=== PATIENT | female | born 1950 | race Caucasian/White ===

== ENCOUNTER 2019-03-16 05:13 | Day surgery (SDC) | payer MEDICARE, OTHER, SELFPAY ==
[2019-03-16 05:42] VITALS: BP 130/104; PULSE 76; RESP 16; TEMP 36.5; O2SAT 97; BMI 23.1
[2019-03-16] MEDS: Lactated Ringers 1,000 ML 100 ML IV (05:53)
--- NOTE | 2019-03-16 06:21 | PCM.HP.STD ---
Problem List (1) Personal history of colonic polyps Status: Acute History of Present Illness Date of Admission: 03/16/19 The patient is a 68 year old F who has a personal history of colon polyps. Her most recent colonoscopy was March 12, 2016. Using a hot snare I resected a 10 mm tubular adenoma from the transverse colon. Multiple fragments were submitted. She presents now for follow-up colonoscopy due to the size and difficulty of her previous colonoscopy. She had a very tortuous bowel. She notes chronic constipation. She notes that she had a successful hemorrhoidectomy at that time as well. She denies bright red blood per rectum or melena. No abdominal pain. No weight loss. She denies family history of colon cancer. Past Medical History Allergies No Known Allergies Allergy (Verified 03/10/19 10:01) Home Medications: Ambulatory Orders Medication Instructions Recorded peg 3350-electrolytes 236 4,000 ml PO ONCE #4000 ml 02/24/19 gram-22.74 gram-6.74 gram-5.86 gram solution Simvastatin [Zocor] 40 mg PO QHS 03/10/19 Smoking Status: Never smoker Tobacco Use: Non-smoker Review of Systems Constitutional: Denies: Anorexia HEENT: Denies: Difficulty Swallowing Cardiovascular: Denies: Chest Pain Gastrointestinal: Denies: Abdominal Pain, Melena Endocrine: Denies: Change in Body Habitus VTE Information - Inpt Only VTE Present on Admission: No Patient Problems: Active and Suspected Problems Personal history of colonic polyps (Acute) - Physical Exam Vitals/I&O's: Vital Signs Temp Pulse Resp BP Pulse Ox 97.7 F L 76 16 130/104 H 97 03/16/19 05:42 03/16/19 05:42 03/16/19 05:42 03/16/19 05:42 03/16/19 05:42 Oxygen Delivery Method Room Air Weight: 132 lb 7.965 oz Body Mass Index (BMI) 23.1 General: Alert, Oriented x3, Cooperative, No apparent distress HEENT: Atraumatic Oral: Moist Mucosa Neck: Supple Lungs: Clear to auscultation Cardiovascular: Regular rate, Regular Rhythm Abdomen: Bowel Sounds Present, Soft, Non Tender Extremities: No Calf Tenderness Psych/Mental Status: Normal Affect Current Medications Lactated Ringer's () 1,000 mls @ 100 mls/hr IV .Q10H ONE Stop: 03/16/19 15:54 Last Admin: 03/16/19 05:53 Dose: 100 mls/hr Documented by: Assessment/Plan All Active Problems Personal history of colonic polyps (Acute) 68-year-old female presents for surveillance colonoscopy. I have discussed the technique, benefits, risks, alternatives. She has had an opportunity to ask and have questions answered. She presents via our open access program today. We will proceed as noted. Devendra Leiva M.D., F.A.C.S.
[2019-03-16 06:59] VITALS: BP 118/80; BP 130/104; PULSE 77; RESP 16; TEMP 36.7; O2SAT 99
--- NOTE | 2019-03-16 07:02 | OP.COLON_ITS ---
Patient Name: Kenzie Kenny Procedure Date: 03/16/2019 6:05 AM Date of : 1950 Age: 68 Procedure: Colonoscopy Indications: High risk colon cancer surveillance: Personal history of colonic polyps Providers: Devendra Leiva MD Referring MD: Amy Girard Medicines: See the Anesthesia note for documentation of the administered medications Patient Profile: Last Colonoscopy: February 2016. Complications: No immediate complications. Procedure: Pre-Anesthesia Assessment: - Prior to the procedure, a History and Physical was performed, and patient medications and allergies were reviewed. The patient's tolerance of previous anesthesia was also reviewed. The risks and benefits of the procedure and the sedation options and risks were discussed with the patient. All questions were answered, and informed consent was obtained. Prior Anticoagulants: The patient has taken no previous anticoagulant or antiplatelet agents. ASA Grade Assessment: II - A patient with mild systemic disease. After reviewing the risks and benefits, the patient was deemed in satisfactory condition to undergo the procedure. After I obtained informed consent, the scope was passed under direct vision. Throughout the procedure, the patient's blood pressure, pulse, and oxygen saturations were monitored continuously. The colonoscope was introduced through the anus and advanced to the cecum, identified by appendiceal orifice and ileocecal valve. The colonoscopy was performed with moderate difficulty due to a tortuous colon. The patient tolerated the procedure well. The quality of the bowel preparation was good. The ileocecal valve and the appendiceal orifice were photographed. Scope In: 6:36:52 AM Scope Withdrawal Time 0 hours 6 minutes 9 seconds Scope Out: 6:55:11 AM Total Procedure Duration Time 0 hours 18 minutes 19 seconds Findings: The perianal exam findings include non-thrombosed external hemorrhoids, non-thrombosed internal hemorrhoids and internal hemorrhoids (Grade I). Multiple diverticula were found in the sigmoid colon and descending colon. Extensive diverticulosis and tortuosity of the sigmoid requiring supine position and transabdominal pressure and then left lateral decubitus position inorder to navigate. The exam was otherwise without abnormality. Impression: - Non-thrombosed external hemorrhoids, non-thrombosed internal hemorrhoids and internal hemorrhoids (Grade I) found on perianal exam. - Diverticulosis in the sigmoid colon and in the descending colon. - The examination was otherwise normal. - No specimens collected. Recommendation: - Discharge patient to home. - Resume previous diet. - Continue present medications. - Repeat colonoscopy in 5 years for surveillance. Procedure Code(s): --- Professional --- G0105, Colorectal cancer screening; colonoscopy on individual at high risk Diagnosis Code(s): --- Professional --- Z86.010, Personal history of colonic polyps K64.0, First degree hemorrhoids K64.4, Residual hemorrhoidal skin tags K57.30, Diverticulosis of large intestine without perforation or abscess without bleeding CPT copyright 2017 [employer]. All rights reserved. The codes documented in this report are preliminary and upon inpatient coder review may be revised to meet current compliance requirements. Devendra Leiva MD 03/16/2019 7:02:13 AM This report has been signed electronically. Number of Addenda: 0 Note Initiated On: 03/16/2019 6:05 AM
[2019-03-16 07:04] VITALS: BP 114/77; BP 130/104; PULSE 71; RESP 16; O2SAT 97
[2019-03-16 07:09] VITALS: BP 124/82; BP 130/104; PULSE 69; RESP 16; O2SAT 98
[2019-03-16 07:14] VITALS: BP 125/81; BP 130/104; PULSE 58; RESP 16; TEMP 36.7; O2SAT 99
[2019-03-16 07:17] VITALS: BP 130/104
== END 2019-03-16 07:32 | disposition home or self-care (01) ==
LOC: EN 05:15 → AC 05:25
PROVIDERS: Family Provider Internal Medicine; PCP Internal Medicine; Referring Provider Internal Medicine; Visit Provider Surgery
PROC: 0DJD8ZZ Inspection of Lower Intestinal Tract, Via Natural or Artificial Opening Endoscopic (ICD-10-PCS; CPT 45378; principal; 2019-03-16 06:25)
DX: Z86.010 Personal history of colon polyps (principal); K64.0 First degree hemorrhoids; K64.4 Residual hemorrhoidal skin tags; K57.30 Diverticulosis of large intestine without perforation or abscess without bleeding; K59.09 Other constipation; E78.00 Pure hypercholesterolemia, unspecified; Z78.0 Asymptomatic menopausal state; Z79.899 Other long term (current) drug therapy
CPT/HCPCS: G0105; J7120; J2405

== ENCOUNTER → 2020-12-26 08:14 | Outpatient (CLI) | payer MEDICARE, OTHER, SELFPAY ==
[2020-12-26 10:05] LABS: Absolute Lymphocyte Count 0.84 X10^3/uL (0.83-4.51); Absolute Neutrophil Count 2.8 X10^3/uL (2.0-7.7); Basophil# 0.04 X10^3/uL; Basophil% 0.9 % (0-1); Eosinophil# 0.17 X10^3/uL; Eosinophils% 3.9 % (0-5); Hematocrit 41.1 % (37-47); Hemoglobin 13.7 g/dL (12.0-15.0); Lymphocyte # 0.84 X10^3/ul (0.83-4.51); Lymphocyte % 19.5 % (19-41); Mean Corp Hgb Conc 33.3 g/dL (32-36); Mean Corpuscular Hgb 31.2 pg (27.0-32.0); Mean Corpuscular Volume 93.6 fL (81-99); Mean Platelet Vol. 10.6 fl (6.2-12.0); Monocyte% 9.3 % (0-10); NRBC Flagged by Analyzer 0 % (0-5); Neutrophil # 2.84 X10^3/uL (2.7-7.7); Neutrophil % 65.9 % (47-70); Platelet Count 162 K/mm3 (150-450); RBC Distribution Width CV 13.1 % (11.6-14.6); RBC Distribution Width SD 44.8 fl (35.1-43.9); Red Blood Count 4.39 M/mm3 (4.2-5.4); White Blood Count 4.3 K/mm3 (4.4-11.0)
[2020-12-26 10:30] LABS: Vitamin D,25 Hydroxy 64.6 ng/mL
[2020-12-26 10:41] LABS: AST(SGOT) 22 U/L (15-37); Alanine Aminotransfer ALT/SGPT 32 U/L (13-56); Albumin, Serum 3.6 g/dL (3.2-5.0); Alkaline Phosphatase 63 U/L (45-117); Anion Gap 4 (5-15); BUN 16 mg/dL (7-18); BUN/Creat Ratio 21.8 RATIO (10-20); Calcium,Total 8.7 mg/dL (8.5-10.1); Chloride 105 mmol/L (98-107); Cholesterol 214 mg/dL (200); Creatinine, Serum 0.73 mg/dL (0.55-1.02); EST Glomerular Filtration Rate 83 mL/min (>60); Est Glom Filt Rate - Afr Amer 101 mL/min (>60); Globulin 3.5 g/dL (2.2-4.2); Glucose 94 mg/dL (74-106); High Density Lipoprotein 68 mg/dL; Potassium 3.9 mmol/L (3.5-5.1); Protein, Total 7.1 g/dL (6.4-8.2); Sodium Level 138 mmol/L (136-145); Thyroid Stim Hormone (TSH) 1.15 uIU/mL (0.358-3.74); Triglycerides 123 mg/dL; Very Low Density Lipoprotein 25 mg/dL (5-40)
[2020-12-30 12:08] LABS: Alternaria alternata <0.10 kU/L (Class 0); Aspergillus fumigatus <0.10 kU/L (Class 0); Bermuda Grass 0.38 kU/L (Class I); Bluegrass, Kentucky 4.11 kU/L (Class IV); Cat Hair/Dander, Standard <0.10 kU/L (Class 0); Cedar, Mountain <0.10 kU/L (Class 0); Cladosporium herbarum <0.10 kU/L (Class 0); Cockroach, American <0.10 kU/L (Class 0); D farinae Mite <0.10 kU/L (Class 0); D pteronyssinus <0.10 kU/L (Class 0); Dog Epithelia <0.10 kU/L (Class 0); Elm, American White <0.10 kU/L (Class 0); Hazelnut Tree <0.10 kU/L (Class 0); Hickory, White <0.10 kU/L (Class 0); Johnson Grass 0.54 kU/L (Class I); Maple/Box Elder <0.10 kU/L (Class 0); Mucor racemosus <0.10 kU/L (Class 0); Mugwort <0.10 kU/L (Class 0); Mulberry, White <0.10 kU/L (Class 0); Oak, White <0.10 kU/L (Class 0); Penicillium chrysogen <0.10 kU/L (Class 0); Pigweed, Rough <0.10 kU/L (Class 0); Plantain, English <0.10 kU/L (Class 0); Ragweed, Short/Common 3.55 kU/L (Class III); Sheep Sorrel(Dock) <0.10 kU/L (Class 0); Stemphylium herbarum <0.10 kU/L (Class 0); Sweet Gum <0.10 kU/L (Class 0); Sycamore, American <0.10 kU/L (Class 0)
[2020-12-31 08:24] LABS: Nettle <0.10 kU/L (Class 0)
== END ==
PROVIDERS: PCP Family Medicine; Referring Provider Family Medicine; Visit Provider Family Medicine
DX: R61 Generalized hyperhidrosis (principal); E55.9 Vitamin D deficiency, unspecified; E78.5 Hyperlipidemia, unspecified; Z91.09 Other allergy status, other than to drugs and biological substances
CPT/HCPCS: 36415; 80053; 80061; 82306; 84443; 85025; 86003

== ENCOUNTER 2021-08-02 08:18 | Outpatient (CLI) | payer MEDICARE, OTHER, SELFPAY ==
[2021-08-02 10:16] LABS: ALB/GLOB Ratio 1.2 RATIO (0.9-2.4); AST(SGOT) 17 U/L (15-37); Alanine Aminotransfer ALT/SGPT 25 U/L (13-56); Albumin, Serum 3.8 g/dL (3.2-5.0); Alkaline Phosphatase 74 U/L (45-117); Anion Gap 5 (5-15); BUN 10 mg/dL (7-18); BUN/Creat Ratio 12.6 RATIO (10-20); Calcium,Total 8.9 mg/dL (8.5-10.1); Chloride 104 mmol/L (98-107); Cholesterol 179 mg/dL (200); Creatinine, Serum 0.79 mg/dL (0.55-1.02); EST Glomerular Filtration Rate 76 mL/min (>60); Est Glom Filt Rate - Afr Amer 92 mL/min (>60); Globulin 3.3 g/dL (2.2-4.2); Glucose 87 mg/dL (74-106); High Density Lipoprotein 64 mg/dL; Potassium 3.9 mmol/L (3.5-5.1); Protein, Total 7.1 g/dL (6.4-8.2); Sodium Level 137 mmol/L (136-145); Triglycerides 106 mg/dL; Very Low Density Lipoprotein 21 mg/dL (5-40)
[2021-08-02 10:28] LABS: Vitamin D,25 Hydroxy 52.5 ng/mL
== END 2021-08-02 23:59 | disposition home or self-care (01) ==
LOC: MFPLAB 08:20
PROVIDERS: PCP Family Medicine; Referring Provider Family Medicine; Visit Provider Family Medicine
DX: R61 Generalized hyperhidrosis (principal); E78.5 Hyperlipidemia, unspecified; E55.9 Vitamin D deficiency, unspecified
CPT/HCPCS: 36415; 80053; 80061; 82306

== ENCOUNTER → 2022-01-31 | Outpatient (CLI) | payer MEDICARE, OTHER, SELFPAY ==
[2022-01-31 10:23] LABS: Absolute Neutrophil Count 3.3 X10^3/uL (2.0-7.7); Basophil# 0.05 X10^3/uL; Basophil% 1.1 % (0-1); Eosinophil# 0.09 X10^3/uL; Hematocrit 39.2 % (37-47); Hemoglobin 12.6 g/dL (12.0-15.0); Lymphocyte % 17.5 % (19-41); Mean Corp Hgb Conc 32.1 g/dL (32-36); Mean Corpuscular Hgb 29.7 pg (27.0-32.0); Mean Corpuscular Volume 92.5 fL (81-99); Mean Platelet Vol. 11.1 fl (6.2-12.0); Monocyte# 0.38 X10^3/uL; Monocyte% 8.3 % (0-10); NRBC Flagged by Analyzer 0 % (0-5); Neutrophil # 3.25 X10^3/uL (2.7-7.7); Neutrophil % 70.9 % (47-70); Platelet Count 214 K/mm3 (150-450); RBC Distribution Width CV 13.2 % (11.6-14.6); RBC Distribution Width SD 44.2 fl (35.1-43.9); Red Blood Count 4.24 M/mm3 (4.2-5.4); White Blood Count 4.6 K/mm3 (4.4-11.0)
[2022-01-31 10:57] LABS: Cholesterol 156 mg/dL (200); High Density Lipoprotein 61 mg/dL; Triglycerides 89 mg/dL; Very Low Density Lipoprotein 18 mg/dL (5-40)
[2022-01-31 10:58] LABS: Vitamin D,25 Hydroxy 60.9 ng/mL
== END | disposition home or self-care (01) ==
LOC: MFPLAB 08:31
PROVIDERS: PCP Family Medicine; Referring Provider Family Medicine; Visit Provider Family Medicine
DX: E55.9 Vitamin D deficiency, unspecified (principal); E78.5 Hyperlipidemia, unspecified; R61 Generalized hyperhidrosis
CPT/HCPCS: 36415; 80061; 82306; 85025

== ENCOUNTER → 2022-08-13 | Outpatient (CLI) | payer MEDICARE, OTHER, SELFPAY ==
--- NOTE | 2022-08-13 13:31 | STRESSREP_ITS ---
Stress Test Report Date: 08/13/2022 Procedure: Exercise tolerance test Indications: Chest pain/fatigue Consent: Per the patient Procedure: The patient exercised on a Mack protocol for 9 minutes and 31 seconds achieving a peak heart rate of 179 bpm (120% predicted maximal heart rate) with a peak blood pressure 200/100 mmHg and a peak MET capacity of approximately 11.7 MET's. The baseline ECG demonstrated normal sinus rhythm. The peak exercise ECG demonstrated no ischemic changes. There were no cardiac dysrhythmias pretest, during exercise, or recovery. The functional capacity was considered very good for age. The patient had no complaints of chest discomfort during exercise or recovery. Some shortness of breath with exercise. The examination was discontinued secondary to target heart rate being achieved. Impression: 1. Technically adequate (percent predicted maximal heart rate greater than 85%) exercise tolerance test 2. Peak exercise ECG with no ischemic changes 3. There were no cardiac dysrhythmias during exercise or recovery This note was generated with [employer] software. It may contain incorrect words, spelling, and punctuation that were not noted in checking the note before signing.
== END | disposition home or self-care (01) ==
LOC: PSN 08:47
PROVIDERS: PCP Family Medicine; Referring Provider Nurse Practitioner Family; Visit Provider Nurse Practitioner Family
DX: R07.9 Chest pain, unspecified (principal)
CPT/HCPCS: 93005; 93017

== ENCOUNTER → 2022-11-06 | Outpatient (CLI) | payer MEDICARE, OTHER, SELFPAY ==
[2022-11-06 10:43] LABS: Absolute Lymphocyte Count 1.32 X10^3/uL (0.83-4.51); Absolute Neutrophil Count 3.9 X10^3/uL (2.0-7.7); Basophil# 0.04 X10^3/uL; Basophil% 0.7 % (0-1); Eosinophil# 0.11 X10^3/uL; Eosinophils% 1.9 % (0-5); Hematocrit 42.5 % (37-47); Hemoglobin 13.7 g/dL (12.0-15.0); Lymphocyte # 1.32 X10^3/ul (0.83-4.51); Lymphocyte % 22.6 % (19-41); Mean Corp Hgb Conc 32.2 g/dL (32-36); Mean Corpuscular Hgb 29.6 pg (27.0-32.0); Mean Corpuscular Volume 91.8 fL (81-99); Mean Platelet Vol. 11.7 fl (6.2-12.0); Monocyte# 0.52 X10^3/uL; Monocyte% 8.9 % (0-10); NRBC Flagged by Analyzer 0 % (0-5); Neutrophil # 3.85 X10^3/uL (2.7-7.7); Neutrophil % 65.7 % (47-70); Platelet Count 151 K/mm3 (150-450); RBC Distribution Width CV 14.4 % (11.6-14.6); RBC Distribution Width SD 48.1 fl (35.1-43.9); Red Blood Count 4.63 M/mm3 (4.2-5.4); White Blood Count 5.9 K/mm3 (4.4-11.0)
[2022-11-06 11:29] LABS: Vitamin B12 284 pg/mL (211-911); Vitamin D,25 Hydroxy 45.5 ng/mL
[2022-11-06 11:58] LABS: ALB/GLOB Ratio 1.1 RATIO (0.9-2.4); AST(SGOT) 17 U/L (15-37); Alanine Aminotransfer ALT/SGPT 17 U/L (13-56); Albumin, Serum 3.9 g/dL (3.2-5.0); Alkaline Phosphatase 101 U/L (45-117); Anion Gap 4 (5-15); BUN 10 mg/dL (7-18); Calcium,Total 9.2 mg/dL (8.5-10.1); Chloride 106 mmol/L (98-107); Cholesterol 168 mg/dL (200); Creatinine, Serum 0.91 mg/dL (0.55-1.02); EST Glomerular Filtration Rate 64 mL/min (>60); Est Glom Filt Rate - Afr Amer 78 mL/min (>60); Globulin 3.6 g/dL (2.2-4.2); Glucose 89 mg/dL (74-106); High Density Lipoprotein 64 mg/dL; Potassium 4.1 mmol/L (3.5-5.1); Protein, Total 7.5 g/dL (6.4-8.2); Sodium Level 137 mmol/L (136-145); T4 Free Direct 0.97 ng/dL (0.76-1.46); Thyroid Stim Hormone (TSH) 1.72 uIU/mL (0.358-3.74); Triglycerides 145 mg/dL; Very Low Density Lipoprotein 29 mg/dL (5-40)
== END | disposition home or self-care (01) ==
LOC: MFPLAB 08:21
PROVIDERS: PCP Family Medicine; Visit Provider Family Medicine
DX: R53.83 Other fatigue (principal); E78.5 Hyperlipidemia, unspecified; E55.9 Vitamin D deficiency, unspecified
CPT/HCPCS: 36415; 80053; 80061; 82306; 82607; 84439; 84443; 85025

== ENCOUNTER → 2022-11-11 | Outpatient (CLI) | payer MEDICARE, OTHER, SELFPAY ==
--- NOTE | 2022-11-11 08:38 | ECHOD_ITS ---
Reason For Study: SOB Procedure This was a 2D Doppler, Color Flow transthoracic echocardiogram. Exam performed in department. Left Ventricle Normal LV size. Left ventricular systolic function is normal. The estimated ejection fraction is 60 %. Stage 1 diastolic dysfunction. No regional wall motion abnormalities noted. Right Ventricle Normal RV size. Normal systolic function. Atria Normal left atrium. Normal right atrium. Bubble contrast study negative for right to left interatrial shunt. Mitral Valve Bileaflet diffuse mitral valve thickening. Tricuspid Valve Normal tricuspid valve. Mild tricuspid valve insufficiency. Pulmonary artery systolic pressure is 28 mmHg. Great Vessels Mild to moderately dilated aortic root. The pulmonary artery is normal size. Normal inferior vena cava. Pericardium/Pleural No pericardial effusion. Medication 20 gauge I.V. with prn adaptor inserted into right arm. Performed a rapid injection of agitated mix of 9 cc saline and 1cc air to assess for atrial septal defect. MMode/2D Measurements & Calculations LVIDd: 3.9 cm IVSd: 0.92 cm Ao root diam: 4.1 cm LVIDs: 2.4 cm LVPWd: 0.74 cm LA dimension: 3.6 cm FS: 38.4 % LAV(MOD-bp): 50.7 ml LVAd ap4: 20.3 cm2 SV(MOD-sp4): 27.3 ml LAV(MOD-bp) Indexed: 31.1 ml/m2 LVLd ap4: 6.8 cm LAV(MOD-sp2): 48.9 ml EDV(MOD-sp4): 50.8 ml LAV(MOD-sp4): 44.2 ml EDV(sp4-el): 51.6 ml LVAs ap4: 12.2 cm2 LVLs ap4: 5.2 cm ESV(MOD-sp4): 23.4 ml ESV(sp4-el): 24.4 ml EF(MOD-sp4): 53.9 % EF(sp4-el): 52.6 % SV(sp4-el): 27.1 ml LA A4 area: 17.0 cm2 RA A4 area: 13.2 cm2 Time Measurements MV dec time: 0.23 sec Doppler Measurements & Calculations MV E max elliot: 78.4 cm/sec Lat Peak E' Elliot: 5.6 cm/sec Med Peak E' Elliot: 4.7 cm/sec MV A max elliot: 103.3 cm/sec E/E' lat: 14.1 E/E' med: 16.6 MV E/A: 0.76 MV V2 max: 103.6 cm/sec MV P1/2t max elliot: 77.5 cm/sec MR max elliot: 681.0 cm/sec MV max P.3 mmHg MV P1/2t: 81.9 msec MR max P.5 mmHg MV V2 mean: 57.8 cm/sec MV dec slope: 277.3 cm/sec2 MR mean elliot: 552.4 cm/sec MV mean P.6 mmHg MR mean P.5 mmHg MV V2 VTI: 28.3 cm MVA(P1/2t): 2.7 cm2 MR VTI: 250.7 cm PA V2 max: 116.5 cm/sec TR max elliot: 248.1 cm/sec TR max P.6 mmHg ECHO/Echo Complete Interpretation Summary Normal LV size. Left ventricular systolic function is normal. The estimated ejection fraction is 60 %. Bubble contrast study negative for right to left interatrial shunt. Mild to moderately dilated aortic root. Stage 1 diastolic dysfunction. Mild tricuspid valve insufficiency. Pulmonary artery systolic pressure is 28 mmHg. Ordering Physician: Jaydon Gandhi Referring Physician: Jaydon Gandhi Performed By: Tony Tineo and Student
== END | disposition home or self-care (01) ==
LOC: CVS 08:37
PROVIDERS: PCP Family Medicine; Referring Provider Family Medicine; Visit Provider Family Medicine
DX: R06.02 Shortness of breath (principal)
CPT/HCPCS: 93306; A4216

== ENCOUNTER → 2023-10-21 | Outpatient (CLI) | payer MEDICARE, OTHER, SELFPAY ==
[2023-10-21 12:49] LABS: Absolute Lymphocyte Count 0.94 X10^3/uL (0.83-4.51); Absolute Neutrophil Count 3.6 X10^3/uL (2.0-7.7); Basophil# 0.04 X10^3/uL; Basophil% 0.8 % (0-1); Eosinophil# 0.07 X10^3/uL; Eosinophils% 1.4 % (0-5); Hematocrit 40.4 % (37-47); Lymphocyte # 0.94 X10^3/ul (0.83-4.51); Lymphocyte % 18.5 % (19-41); Mean Corp Hgb Conc 32.2 g/dL (32-36); Mean Corpuscular Hgb 29.7 pg (27.0-32.0); Mean Corpuscular Volume 92.4 fL (81-99); Mean Platelet Vol. 11.6 fl (6.2-12.0); Monocyte# 0.45 X10^3/uL; Monocyte% 8.9 % (0-10); NRBC Flagged by Analyzer 0 % (0-5); Neutrophil # 3.56 X10^3/uL (2.7-7.7); Neutrophil % 70.2 % (47-70); Platelet Count 131 K/mm3 (150-450); RBC Distribution Width CV 13.8 % (11.6-14.6); RBC Distribution Width SD 46.7 fl (35.1-43.9); Red Blood Count 4.37 M/mm3 (4.2-5.4); White Blood Count 5.1 K/mm3 (4.4-11.0)
[2023-10-21 12:51] LABS: ALB/GLOB Ratio 1.1 RATIO (0.9-2.4); AST(SGOT) 26 U/L (15-37); Alanine Aminotransfer ALT/SGPT 21 U/L (13-56); Albumin, Serum 3.8 g/dL (3.2-5.0); Alkaline Phosphatase 79 U/L (45-117); Anion Gap 9 (5-15); BUN 11 mg/dL (7-18); BUN/Creat Ratio 13.7 RATIO (10-20); Calcium,Total 9.4 mg/dL (8.5-10.1); Chloride 102 mmol/L (98-107); Cholesterol 169 mg/dL (200); EST Glomerular Filtration Rate 75 mL/min (>60); Est Glom Filt Rate - Afr Amer 90 mL/min (>60); Globulin 3.6 g/dL (2.2-4.2); Glucose 85 mg/dL (74-106); High Density Lipoprotein 68 mg/dL; Protein, Total 7.4 g/dL (6.4-8.2); Sodium Level 135 mmol/L (136-145); T4 Free Direct 0.98 ng/dL (0.76-1.46); Thyroid Stim Hormone (TSH) 1.51 uIU/mL (0.358-3.74); Triglycerides 119 mg/dL; Very Low Density Lipoprotein 24 mg/dL (5-40)
[2023-10-21 12:56] LABS: Vitamin B12 355 pg/mL (211-911); Vitamin D,25 Hydroxy 52.1 ng/mL
== END | disposition home or self-care (01) ==
LOC: MFPLAB 08:04
PROVIDERS: PCP Family Medicine; Visit Provider Family Medicine
DX: E55.9 Vitamin D deficiency, unspecified (principal); R53.83 Other fatigue; E78.5 Hyperlipidemia, unspecified
CPT/HCPCS: 36415; 80053; 80061; 82306; 82607; 84439; 84443; 85025

== ENCOUNTER 2023-11-14 12:32 | Outpatient (CLI) | payer MEDICARE, OTHER, SELFPAY ==
--- NOTE | 2023-11-14 12:35 | ECHOD_ITS ---
Reason For Study: SOB Procedure This was a 2D Doppler, Color Flow transthoracic echocardiogram. Exam performed in department. Left Ventricle Normal LV size. Left ventricular systolic function is normal. The left ventricular ejection fraction is 65 %. Stage 1 diastolic dysfunction. No regional wall motion abnormalities noted. Right Ventricle Normal RV size. Normal systolic function. Atria Normal left atrium. Normal right atrium. Mitral Valve Normal mitral valve. Mild (1+) eccentric mitral valve insufficiency. Tricuspid Valve Normal tricuspid valve. Mild (1+) tricuspid valve insufficiency. Pulmonary artery systolic pressure is 32 mmHg. Aortic Valve Trisinus/trileaflet aortic valve. Pulmonic Valve Normal pulmonic valve. Great Vessels Mild to moderately dilated aortic root. The pulmonary artery is normal size. Inferior vena cava collapse with respiration. Pericardium/Pleural No pericardial effusion. MMode/2D Measurements & Calculations RVDd: 3.3 cm LVOT diam: 1.9 cm Ao root diam: 4.3 cm LVOT area: 2.8 cm2 LAV(MOD-sp4): 34.0 ml SV(MOD-sp4): 35.4 ml LVAd ap4: 20.9 cm2 LVLd ap4: 6.7 cm EDV(MOD-sp4): 55.3 ml EDV(sp4-el): 55.3 ml LVAs ap4: 11.0 cm2 LVLs ap4: 5.1 cm ESV(MOD-sp4): 19.9 ml ESV(sp4-el): 20.1 ml EF(MOD-sp4): 64.0 % EF(sp4-el): 63.7 % SV(sp4-el): 35.2 ml LA A4 area: 13.6 cm2 RA A4 area: 14.4 cm2 TAPSE: 2.1 cm Time Measurements MV dec time: 0.27 sec Doppler Measurements & Calculations MV E max elliot: 76.3 cm/sec Lat Peak E' Elliot: 5.4 cm/sec Med Peak E' Elliot: 4.2 cm/sec MV A max elliot: 94.5 cm/sec E/E' lat: 14.1 E/E' med: 18.2 MV E/A: 0.81 MV V2 max: 97.8 cm/sec Ao V2 max: 140.5 cm/sec MV max P.8 mmHg MV dec slope: 283.5 cm/sec2 Ao max P.9 mmHg MV V2 mean: 52.6 cm/sec Ao V2 mean: 82.1 cm/sec MV mean P.4 mmHg Ao mean P.3 mmHg MV V2 VTI: 27.0 cm Ao V2 VTI: 29.1 cm AV (velocity ratio): 0.89 MVA(VTI): 2.7 cm2 SYEDA(I,D): 2.5 cm2 SYEDA(V,D): 2.4 cm2 LV V1 max: 118.3 cm/sec SV(LVOT): 73.3 ml PA V2 max: 98.4 cm/sec LV V1 max P.6 mmHg PA max PG (full): 0.71 mmHg LV V1 mean P.6 mmHg LV V1 mean: 72.3 cm/sec LV V1 VTI: 25.9 cm TR max elliot: 268.9 cm/sec TR max P.9 mmHg ECHO/Echo Complete Interpretation Summary Normal LV size. Left ventricular systolic function is normal. The left ventricular ejection fraction is 65 %. Mild to moderately dilated aortic root. Stage 1 diastolic dysfunction. Ordering Physician: Jaydon Gandhi Referring Physician: Jaydon Gandhi Performed By: Riya Shah and Student
--- NOTE | 2023-11-14 13:11 | ART_ITS ---
Reason For Study: Unequal BP Procedure A bilateral upper extremity continuous wave Doppler with analog waveform analysis and segmental pressures. Left Segmental Pressures Left brachial= 139mmHg. Left ulnar= 139mmHg. Left radial= 173mmHg. The left radial waveforms are triphasic. The left ulnar waveforms are triphasic. Right Segmental Pressures Right brachial= 137mmHg. Right ulnar= 151mmHg. Right radial= 164mmHg. The right radial waveforms are triphasic. The right ulnar waveforms are triphasic. Indices The right wrist-beachial index by the radial artery is 1.18. The right wrist-brachial index by the ulnar artery is 1.09. The left wrist-beachial index by the radial artery is 1.24. The left wrist- brachial index by the ulnar artery is 1.00. VL/Upper Extremity Arterial Study Interpretation Summary Right wrist-brachial index 1.18, normal. Doppler/PVR waveforms of the right arm normal at rest. Left wrist-brachial index 1.24, normal. Doppler/PVR waveforms of the left arm n ormal at rest. Ordering Physician: Jaydon Gandhi Referring Physician: Jaydon Gandhi Performed By: Anika Martinez RVT
== END 2023-11-14 23:59 | disposition home or self-care (01) ==
LOC: CVS 12:34
PROVIDERS: PCP Family Medicine; Referring Provider Family Medicine; Visit Provider Family Medicine
DX: I99.8 Other disorder of circulatory system (principal); I77.89 Other specified disorders of arteries and arterioles; R06.02 Shortness of breath
CPT/HCPCS: 93306; 93923

== ENCOUNTER → 2023-12-02 | Outpatient (CLI) | payer MEDICARE, OTHER, SELFPAY | END | disposition home or self-care (01) | LOC: PSN 06:48 | PROVIDERS: PCP Family Medicine; Referring Provider Family Medicine; Visit Provider Family Medicine | DX: R06.02 Shortness of breath (principal) | CPT/HCPCS: 94060; 94726; 94729 ==

== ENCOUNTER 2024-06-24 10:20 | Outpatient (CLI) | payer MEDICARE, OTHER, SELFPAY ==
[2024-06-24 12:34] LABS: Absolute Lymphocyte Count 0.95 X10^3/uL (0.83-4.51); Absolute Neutrophil Count 3.5 X10^3/uL (2.0-7.7); Basophil# 0.04 X10^3/uL; Basophil% 0.8 % (0-1); Eosinophil# 0.11 X10^3/uL; Eosinophils% 2.2 % (0-5); Hemoglobin 13.5 g/dL (12.0-15.0); Lymphocyte # 0.95 X10^3/ul (0.83-4.51); Mean Corp Hgb Conc 32.9 g/dL (32-36); Mean Corpuscular Hgb 29.9 pg (27.0-32.0); Mean Corpuscular Volume 90.9 fL (81-99); Mean Platelet Vol. 11.8 fl (6.2-12.0); Monocyte# 0.35 X10^3/uL; NRBC Flagged by Analyzer 0 % (0-5); Neutrophil # 3.53 X10^3/uL (2.7-7.7); Neutrophil % 70.6 % (47-70); Platelet Count 194 K/mm3 (150-450); RBC Distribution Width CV 13.8 % (11.6-14.6); RBC Distribution Width SD 46.2 fl (35.1-43.9); Red Blood Count 4.51 M/mm3 (4.2-5.4)
[2024-06-24 13:25] LABS: ALB/GLOB Ratio 1.5 RATIO (0.9-2.4); AST(SGOT) 26 U/L (<=31); Alanine Aminotransfer ALT/SGPT 15 U/L (<=34); Albumin, Serum 4.4 g/dL (3.4-4.8); Alkaline Phosphatase 86 U/L (35-104); Anion Gap 15 (5-15); BUN 10 mg/dL (4-19); BUN/Creat Ratio 11.1 RATIO (10-20); Calcium,Total 9.7 mg/dL (7.6-11.0); Carbon Dioxide 22.5 mmol/L (21.0-32.0); Chloride 104 mmol/L (98-108); Creatinine, Serum 0.87 mg/dL (0.70-1.20); EST Glomerular Filtration Rate 70 (>60); Globulin 2.9 g/dL (2.2-4.2); Glucose 87 mg/dL (70-99); Potassium 3.8 mmol/L (3.3-5.1); Protein, Total 7.3 g/dL (5.9-8.4); Sodium Level 142 mmol/L (133-145); Total Bilirubin 0.43 mg/dL (0.00-1.30)
[2024-06-24 13:49] LABS: Internal QC Validated? YES +Cl - CLEAR BKGD; Monotest Negative (Negative)
[2024-06-24 13:50] LABS: Record Kit Lot#, Mono 13241430
[2024-06-24 14:50] LABS: Vitamin B12 367 pg/mL (180-914)
[2024-06-25 04:07] LABS: CMV Acute Antibody IgM < 30.0 AU/mL (0.0-29.9); CMV Antibody IgG < 0.60 U/mL (0.00-0.59)
== END 2024-06-24 23:59 | disposition home or self-care (01) ==
LOC: MFPLAB 10:21
PROVIDERS: PCP Family Medicine; Referring Provider Family Medicine; Visit Provider Family Medicine
DX: R53.83 Other fatigue (principal)
CPT/HCPCS: 36415; 80053; 82306; 82607; 84439; 84443; 85025; 86308; 86644; 86645

== ENCOUNTER → 2024-08-10 | Outpatient (CLI) | payer MEDICARE, OTHER, SELFPAY ==
--- NOTE | 2024-08-10 06:42 | ECHOD_ITS ---
Reason For Study Reason For Study: OTHER SPECIFIED DISORDERS OF ARTERIES/ARTERIOLES Procedure This was a 2D Doppler, Color Flow transthoracic echocardiogram. Exam performed in department. Left Ventricle Normal LV size. The estimated ejection fraction is 65 %. No evidence for diastolic dysfunction. No regional wall motion abnormalities noted. Right Ventricle Normal RV size. Normal systolic function. Atria The left and right atria are normal. No doppler evidence for ASD. Mitral Valve There is no mitral valve stenosis. Trivial mitral valve insufficiency. Tricuspid Valve There is no tricuspid stenosis. Mild tricuspid valve insufficiency. Pulmonary artery systolic pressure is 30-35 mmHg. Aortic Valve Trisinus/trileaflet aortic valve. There is no aortic stenosis. No aortic valve insufficiency. Pulmonic Valve There is no pulmonic valvular stenosis. Trivial pulmonic valve insufficiency. Great Vessels Normal sized aortic root. Pericardium/Pleural No pericardial effusion. MMode/2D Measurements & Calculations LVIDd: 4.4 cm IVSd: 0.91 cm Ao root diam: 4.1 cm LVIDs: 2.9 cm LVPWd: 0.83 cm RVDd: 3.1 cm FS: 32.9 % asc Aorta Diam: 4.3 cm LAV(MOD-bp): 46.7 ml LVAd ap4: 20.8 cm2 LAV(MOD-bp) Indexed: 28.2 ml/m2 LVLd ap4: 6.6 cm LAV(MOD-sp2): 45.0 ml EDV(MOD-sp4): 54.8 ml LAV(MOD-sp4): 43.8 ml EDV(sp4-el): 55.7 ml LVAs ap4: 12.1 cm2 LVLs ap4: 5.8 cm ESV(MOD-sp4): 22.8 ml ESV(sp4-el): 21.3 ml EF(MOD-sp4): 58.4 % EF(sp4-el): 61.7 % LVAd ap2: 16.0 cm2 SV(MOD-sp4): 32.0 ml SV(MOD-sp2): 21.0 ml LVLd ap2: 6.6 cm SI(MOD-sp4): 19.3 ml/m2 SI(MOD-sp2): 12.7 ml/m2 EDV(MOD-sp2): 33.3 ml EDV(sp2-el): 32.7 ml LVAs ap2: 8.4 cm2 LVLs ap2: 5.5 cm ESV(MOD-sp2): 12.3 ml ESV(sp2-el): 10.9 ml EF(MOD-sp2): 63.0 % SV(sp4-el): 34.3 ml LA dimension(2D): 3.8 cm LA A4 area: 17.2 cm2 RA A4 area: 16.0 cm2 TAPSE: 2.2 cm Time Measurements MV dec time: 0.25 sec Doppler Measurements & Calculations MV E max elliot: 74.0 cm/sec Lat Peak E' Elliot: 5.9 cm/sec Med Peak E' Elliot: 5.5 cm/sec MV A max elliot: 86.5 cm/sec E/E' lat: 12.5 E/E' med: 13.5 MV E/A: 0.86 MV V2 max: 110.4 cm/sec MV P1/2t max elliot: 82.0 cm/sec Ao V2 max: 156.7 cm/sec MV max P.9 mmHg MV P1/2t: 69.9 msec Ao max P.8 mmHg MV V2 mean: 68.2 cm/sec Ao V2 mean: 110.6 cm/sec MV mean P.1 mmHg MV dec slope: 343.5 cm/sec2 Ao mean P.5 mmHg MV V2 VTI: 26.2 cm MVA(P1/2t): 3.1 cm2 Ao V2 VTI: 36.3 cm AV (velocity ratio): 0.78 LV V1 max: 116.6 cm/sec PA V2 max: 94.8 cm/sec PI dec slope: 199.3 cm/sec2 LV V1 max P.5 mmHg PA V2 mean: 70.6 cm/sec LV V1 mean P.0 mmHg LV V1 mean: 82.3 cm/sec LV V1 VTI: 28.5 cm TR max elliot: 262.2 cm/sec TR max P.5 mmHg ECHO/Echo Complete Interpretation Summary The estimated ejection fraction is 65 %. No evidence for diastolic dysfunction. Trivial mitral valve insufficiency. Ordering Physician: Jaydon Gandhi Referring Physician: Jaydon Gandhi Performed By: Sharron Shirley RDCS, RVT
== END | disposition home or self-care (01) ==
LOC: CVS 06:42
PROVIDERS: PCP Family Medicine; Referring Provider Family Medicine; Visit Provider Family Medicine
DX: I47.19 Other supraventricular tachycardia (principal)
CPT/HCPCS: 93306